=== PATIENT | male | born 1965 | race Caucasian/White ===

== ENCOUNTER 2020-12-30 16:53 | Outpatient (CLI) | payer BC | END 2020-12-30 16:54 | disposition home or self-care (01) | LOC: SCSRAD 16:53 | PROVIDERS: ATTEND Nurse Practitioner Family | DX: R10.32 Left lower quadrant pain (principal) | CPT/HCPCS: 74018 ==

== ENCOUNTER 2023-02-18 15:01 | Outpatient (CLI) | payer BC | END 2023-02-18 15:02 | disposition home or self-care (01) | LOC: BICRAD 15:01 | PROVIDERS: ATTEND Family Medicine | DX: M25.561 Pain in right knee (principal); M25.562 Pain in left knee; M25.861 Other specified joint disorders, right knee; M25.862 Other specified joint disorders, left knee; M76.891 Other specified enthesopathies of right lower limb, excluding foot; M76.892 Other specified enthesopathies of left lower limb, excluding foot ==